=== PATIENT | male | born 1970 | race Caucasian/White ===

== ENCOUNTER → 2017-08-11 | Outpatient (CLI) | payer OTHER ==
[~2017-08-11] MED LIST: CYMBALTA60 MG PO; LAMICTAL200 MG PO; UNICOMPLEX M TA1 TA1 PO
[2017-08-11 14:45] VITALS: BP 142/46
[2017-08-11 16:00] VITALS: BP 125/56
== END ==
LOC: OPONC 14:06
DX: D64.9 Anemia, unspecified (principal)
CPT/HCPCS: 95000

== ENCOUNTER → 2017-08-16 | Outpatient (CLI) | payer OTHER ==
[2017-08-16 14:15] VITALS: BP 108/55
[2017-08-16 14:50] VITALS: BP 110/54
== END ==
LOC: OPONC 00:36
DX: D64.9 Anemia, unspecified (principal)
CPT/HCPCS: 95000

== ENCOUNTER → 2017-08-18 | Outpatient (CLI) | payer OTHER ==
[2017-08-18 09:05] VITALS: BP 110/47
[2017-08-18 09:55] VITALS: BP 108/49
== END ==
LOC: OPONC 02:06
DX: D64.9 Anemia, unspecified (principal)
CPT/HCPCS: 95000

== ENCOUNTER → 2017-08-21 | Outpatient (CLI) | payer OTHER ==
[2017-08-21 14:05] VITALS: BP 113/52
[2017-08-21 15:00] VITALS: BP 106/43
== END ==
LOC: OPONC 00:27
DX: D64.9 Anemia, unspecified (principal)
CPT/HCPCS: 95000